=== PATIENT | male | born 1995 | race Caucasian/White ===

== ENCOUNTER 2019-02-24 07:32 | Day surgery (SDC) | payer BC ==
[~2019-02-24 07:32] MED LIST: Midazolam 1 MG/ML 2 ML SDV ONE; Propofol 200 MG/20 ML SDV ONE; Sodium Chloride 0.9% 1,000 ML IV SCH; fentaNYL 100 MCG/2 ML SDV ONE
--- NOTE | 2019-02-24 11:51 | OR ---
DATE OF PROCEDURE: 02/24/2019 PROCEDURES: 1. Esophagogastroduodenoscopy. 2. Ramirez pH monitor placement. COMPLICATIONS: None. AVIONICS SYSTEMS REPAIRER: None. ANESTHESIA: MAC. PREOPERATIVE DIAGNOSIS: Epigastric pain. POSTOPERATIVE DIAGNOSIS: Epigastric pain. RISKS: Risks, benefits, alternatives, and limitations including, but not limited to infection, bleeding, and perforation were explained to the patient who then wished to proceed. PROCEDURE IN DETAIL: The patient was placed in the left lateral decubitus position. EGD scope was introduced and advanced atraumatically into second part of the duodenum. Within the stomach, no abnormalities were noted. No ulcers. No gastritis. On retroflexion, the patient had a small sliding hiatal hernia. The GE junction was identified and measured out to 46 cm. The esophagus was normal. The EGD scope was removed. The carrier was inserted and placed 6 cm proximal to the junction. Suction was applied for 1 minute. The clip was deployed. The carrier returned empty. The scope was then reintroduced. No abnormalities are noted. The scope was reintroduced, and inspected and was noted to be correctly placed. The procedure was terminated. The patient tolerated the procedure well. Joni Lindsey MD /[id number]
== END 2019-02-24 09:47 | disposition home or self-care (01) ==
LOC: JP.SDS 07:32
PROVIDERS: ATTEND Surgery
DX: K44.9 Diaphragmatic hernia without obstruction or gangrene (principal); K21.9 Gastro-esophageal reflux disease without esophagitis; E66.9 Obesity, unspecified; Z79.899 Other long term (current) drug therapy
CPT/HCPCS: 43235; J2250; J2704; J3010; J7030